=== PATIENT | female | born 1950 | race Caucasian/White ===

== ENCOUNTER 2019-05-06 | Emergency (ER) | payer MEDICARE ==
[2019-05-06] MEDS ORDERED: [UNRECOGNIZED DRUG - OTHER] PO (07:32)
[2019-05-06] MEDS ORDERED: EVISTA60 MG PO (07:33)
[2019-05-06] MEDS ORDERED: MEDDOSEPAK PO (07:48)
[2019-05-06] MEDS ORDERED: FLEXERIL5 M1 PO (07:48)
[2019-05-06] MEDS ORDERED: TRAMADOL HYDROC50 MG PO (07:48)
== END 2019-05-06 08:05 | disposition home or self-care (01) ==
DX: M54.31 Sciatica, right side (principal)

== ENCOUNTER 2021-11-14 08:48 | Observation (INO) | payer MEDICARE ==
[~2021-11-14] VITALS: Ht 160 cm; Wt 48.4 kg
[~2021-11-14 08:48] MED LIST: EVISTA60 MG PO; FLEXERIL5 M1 PO; MEDDOSEPAK PO; TRAMADOL HYDROC50 MG PO; [UNRECOGNIZED DRUG - OTHER] PO
[2021-11-14 09:33] LABS: HEMATOCRIT 35.5 % (37.0-47.0); HEMOGLOBIN 11.7 g/dl (12.0-16.0); IMMATURE GRANULOCYTES 0.1 % (0.0-5.0); MEAN CELL VOLUME 95.9 fL CALC (80.0-100.0); MEAN CORPUSCULAR HGB 31.6 pG CALC (26.0-32.0); NEUT# 5.36 thou/uL (2.00-7.15); RED BLOOD COUNT 3.7 mill/uL (4.20-5.60); RED CELL DISTRI WIDTH 13.2 % (11.5-15.5)
[2021-11-14 09:55] LABS: ALBUMIN 3.9 g/dL (3.2-5.0); ALKALINE PHOSPHATASE 75 u/l (38-126); ANION GAP 6 (6-22 (CALC)); BILIRUBIN, TOTAL 0.8 mg/dL (0.0-1.4); BUN 15 mg/dL (8-23); BUN/CREATININE RATIO 23 (12-20 (CALC)); CARBON DIOXIDE 30 mmol/l (22-30); CHLORIDE 103 mmol/l (95-108); CREATININE 0.7 mg/dL (0.5-1.0); GFR FOR AFR.AMER. > 60 ML/MIN (>=60 (CALC)); GFR OTHER RACES > 60 ML/MIN (>=60 (CALC)); SGOT/AST 26 u/l (9-36); SODIUM 136 mmol/l (137-146); TOTAL PROTEIN 6.3 g/dL (6.3-8.2)
[2021-11-14 10:07] LABS: MYOGLOBIN 65 ng/mL (0 - 62)
[2021-11-14 10:11] LABS: POTASSIUM 3.4 mmol/l (3.5-5.1)
[2021-11-14] MEDS ORDERED: AMITRIPTYLINE H10 MG PO (11:59)
[2021-11-14 12:53] VITALS: BP 126/33
[2021-11-14 15:01] VITALS: BP 98/43
[2021-11-14 19:16] VITALS: BP 100/42
[2021-11-15 00:05] VITALS: BP 118/42
[2021-11-15 04:03] VITALS: BP 110/61
[2021-11-15 05:17] LABS: HEMATOCRIT 32.6 % (37.0-47.0); MEAN CELL VOLUME 95.6 fL CALC (80.0-100.0); MEAN CORPUSCULAR HGB 32.3 pG CALC (26.0-32.0); MEAN CORPUSCULAR HGB CONC 33.7 g/dL CAL (32.0-36.0); RED BLOOD COUNT 3.41 mill/uL (4.20-5.60); RED CELL DISTRI WIDTH 13.3 % (11.5-15.5)
[2021-11-15 05:45] LABS: ANION GAP 7 (6-22 (CALC)); BUN 13 mg/dL (8-23); BUN/CREATININE RATIO 22 (12-20 (CALC)); CALCULATED LDLCHOLESTEROL 88 mg/dL (62-129 (CALC)); CARBON DIOXIDE 27 mmol/l (22-30); CHLORIDE 105 mmol/l (95-108); CHOLESTEROL HDL RATIO 2.2 (<4.4 (CALC)); CREATININE 0.6 mg/dL (0.5-1.0); GFR FOR AFR.AMER. > 60 ML/MIN (>=60 (CALC)); GFR OTHER RACES > 60 ML/MIN (>=60 (CALC)); HDL CHOLESTEROL 90 mg/dL (>=40); MAGNESIUM 1.9 mg/dL (1.6-2.3); POTASSIUM 3.9 mmol/l (3.5-5.1); SODIUM 135 mmol/l (137-146); TOTAL CHOLESTEROL 199 mg/dl (0-199); TOTAL TRIGLYCERIDES 103 mg/dl (30-149); VLDL CHOLESTROL 21 mg/dl (0-48 (CALC))
[2021-11-15 06:44] VITALS: BP 111/47
[2021-11-15 10:58] VITALS: BP 101/49
[2021-11-15] MEDS ORDERED: AZITHROMYCIN500 MG PO (11:33)
[2021-11-15] MEDS ORDERED: MEDDOSEPAK PO (11:33)
== END 2021-11-15 12:23 | disposition home or self-care (01) ==
LOC: ED 08:48 → ED-I 11:00 → ED 11:28 → MS2 11:29
PROVIDERS: Emergency Medicine; ADMIT Hospitalist; ATTEND Hospitalist
DX: R07.81 Pleurodynia (principal); J20.9 Acute bronchitis, unspecified; R91.1 Solitary pulmonary nodule; I34.1 Nonrheumatic mitral (valve) prolapse; M54.30 Sciatica, unspecified side; Z20.822 Contact with and (suspected) exposure to COVID-19
CPT/HCPCS: J1650; Q9967

== ENCOUNTER 2023-12-31 11:08 | Observation (INO) | payer MEDICARE ==
[~2023-12-31 11:08] MED LIST changes: +AMITRIPTYLINE H10 MG PO; +AMOXICILLIN500 MG OR; +AZITHROMYCIN500 MG PO; +CIPRO500 MG PO; +CIPROFLOXACN500 MG PO; +CYCLOBENZAPR10 MG PO; +FOSTEUM PO; +METRONIDAZOLE500 MG PO; +NO HOME MEDS; +NORCO1 TA1 PO; +PYRIDIUM200 MG PO; +STERAPRED DS10 MG PO; +TORADOL PO
--- NOTE | 2023-12-31 11:30 | NUR ---
PATIENT WAS A DIRECT ADMIT FROM DR. CARDENAS. PATIENT ARRIVED TO ROOM 272 AMBULATING INDEPENDENTLY WITH SPOUSE ACCOMPANYING. DENIES PAIN ON ADMISSION. ABLE TO ANSWER QUESTIONS APPROPRIATELY. RESPIRATIONS EVEN AND UNLABORED ON ROOM AIR. SKIN INTACT. NO CONCERNS VOICED. ORIENTED TO ROOM AND CALL LIGHT. SAFETY MEASURES IN PLACE.
[2023-12-31 11:39] VITALS: BP 128/66
[2023-12-31 11:53] LABS: BASO% 0.6 % (0-3); EOS% 3.5 % (0-8); HEMATOCRIT 37.7 % (37.0-47.0); HEMOGLOBIN 12.8 g/dl (12.0-16.0); IMMATURE GRANULOCYTES 0.2 % (0.0-5.0); LYMPH% 25.7 % (15-41); MEAN CELL VOLUME 92.9 fL CALC (80.0-100.0); MEAN CORPUSCULAR HGB 31.5 pG CALC (26.0-32.0); MONO% 8.2 % (2-13); NEUT# 3.18 thou/uL (2.00-7.15); NEUT% 61.8 % (42-76); RED BLOOD COUNT 4.06 mill/uL (4.20-5.60); RED CELL DISTRI WIDTH 12.6 % (11.5-15.5)
[2023-12-31 12:26] LABS: CREATININE 0.7 mg/dL (0.5-1.0); POTASSIUM 4.1 mmol/l (3.5-5.1)
[2023-12-31] MEDS ORDERED: LACTATED RINGER'S 1,000 ML IV PRN (12:45)
[2023-12-31] MEDS ORDERED: KETOROLAC TROMETHAMINE 15 MG/ML SDV IV SCH (13:00)
--- NOTE | 2023-12-31 14:48 | NUR ---
PATIENT AWAKE SITTING ON CHAIR IN ROOM WHILE READING A BOOK. IV FLUIDS IN PLACE. PATIENT PREFERS TO AMBULATE OFTEN IN ROOM STATING "I DON'T SIT STILL FOR LONG". REFUSED SCHEDULED TORADOL. HAD BOWEL MOVEMENT AND URINATING WITHOUT DIFFICULTY. CALL LIGHT WITHIN REACH.
[2023-12-31 18:41] VITALS: BP 139/51
[2023-12-31] MEDS ORDERED: Peg 3350-POTASSIUM CHLORIDE-So 4,000 ML BTL PO SCH (19:00)
--- NOTE | 2023-12-31 19:57 | NUR ---
RECIEVED REPORT FROM ROBERTA SAMPSON. PT NOTED SITTING UP IN BED FOWLERS, READING A BOOK. PT IS A/OX3, RM AIR, DENIES ANY P/N/V AT THIS TIME. NURSING ASSESMENT COMPLETED AND IV SITE NOTED TO RAC. PT C/O OF PRESSURE AT IV SITE, SITE DOES PRESENT WITH SOME REDNESS AND SWELLING. REMOVED WITH CATHETER INTACT. NEW IV WILL BE ATTEMPTED. BOWEL PREP ADMINSITERED PER EMAR AND EDUCATED PT ON IMPORTANCE OF COMPLETING BOWEL PREP AND SIDE EFFECTS. EDUCATED PT ON PLAN OF CARE, MED SCHEDULE AND NPO ORDER AFTER MIDNIGHT. PT INDICATED UNDERSTANDING. PT WAS ENCOURAGED TO USE SCD'S AT BEDSIDE, PT REFUSED AT THIS TIME DUE TO INCREASE IN BM AFTER STARTING BOWEL PREP. CALL LIGHT WITHIN REACH AND SAFETY PRECAUTIONS IN PLACE.
--- NOTE | 2023-12-31 20:44 | NUR ---
PT ADMISSION NOT COMPLETED BY DAYSHIFT NURSE.
--- NOTE | 2023-12-31 21:20 | NUR ---
PT RESTING IN BED IN A MID FOWLERS POSITION WATCHING TELEVISION. PT DOES NOT SHOW ANY S&S OF DISTRESS AT THIS TIME. TELE REMAINS IN PLACE. PT IS ON ROOM AIR. ADMISSION ASSESSMENT COMPLETED AT THIS TIME. SCD IN PLACE. WILL ATTEMPT NEW IV ACCESS. INFUSION PAUSED AT THIS TIME. PT IS A&O X3, AND ABLE TO MAKE NEEDS KNOWN. PT COMPLAINING OF SLIGHT NAUSEA WHEN DRINKING THE BOWEL PREP. NO VOMITTING AT THIS TIME. NO FURTHER COMPLAINTS VOICED FROM THE PT. CALL LIGHT IN REACH, AND SAFETY PRECAUTIONS IN PLACE.
[2023-12-31] MEDS ORDERED: ONDANSETRON HCl 4 MG/2 ML SDV IV PRN (22:45)
--- NOTE | 2023-12-31 22:55 | NUR ---
PT MEDICATED PER EMAR FOR NAUSEA. PT DOES NOT VOICE ANY FURTHER COMPLAINTS AT THIS TIME. BOWEL PREP ON BEDSIDE TABLE. PT ENCOURAGED TO DRINK MUCH OF THE BOWEL PREP POSSIBLE. PT EDUCATED ON THE IMPORTANCE OF BOWEL PREP FOR HER PROCEDURE. PT VERBALIZES UNDERSTANDING. CALL LIGHT IN REACH, AND SAFETY PRECAUTIONS IN PLACE.
--- NOTE | 2023-12-31 23:45 | NUR ---
PT HAS BEEN EDUCATED ON THE IMPORTANCE OF COMPLETING THE BOWEL PREP, ENCOURAGED MUTIPLE TIMES TO DRINK. PT STATED "IM FAMILIAR WITH THIS, I NEVER FINISH IT. I JUST CAN'T GET IT DOWN." PT ASLO STILL C/O NAUSEA. PT HAS ONLY DRANK LESS THEN A QAURTER OF BOWEL PREP AT THIS TIME. INFORMED PT OF NPO STATUS AT MIDNIGHT AND ENCOURAGED TO TRY DRINKING MUCH POSSIBLE BEFORE THEN. PT DENIES ANY PAIN AT THIS TIME. SITTING UP ON SIDE OF BED. CALL LIGHT WITHIN REACH AND SAFETY PRECAUTIONS IN PLACE.
--- NOTE | 2024-01-01 00:03 | NUR ---
BOWEL PREP REMOVED FROM PT ROOM, PT WAS ABLE TO DRINK ABOUT HALF OF CONTENTS IN BOTTLE. INFORMED PT OF NPO STATUS OF NOW. PT IS SITTING UP ON SIDE OF BED, STATES "WAITING FOR IT TO HIT ME TO USE THE BATHROOM" PT DENIES ANY PAIN AT THIS TIME, REFUSED SCHEDULED PAIN MEDICAITON PER EMAR. NO S/S DISTRESS. CALL LIGHT WITHIN REACH AND SAFETY PRECAUTIONS IN PLACE.
[2024-01-01 03:47] VITALS: BP 143/62
--- NOTE | 2024-01-01 04:00 | NUR ---
PT RESTING IN BED. PT DOES NOT OFFER ANY COMPLAINTS AT THIS TIME. PT REMAINS ON ROOM AIR. PT DENIES ANY PAIN. PT DENIES ANY NAUSEA. INFUSION GOING PER ORDERS. RELAXATION TECHNIQUES TAUGHT AND ENCOURAGED. NO S&S OF DISTRESS NOTED. CALL LIGHT IN REACH, AND SAFETY PRECAUTIONS IN PLACE.
--- NOTE | 2024-01-01 07:04 | NUR ---
PATIENT LAYING IN BED. SPOUSE IS AT BEDSIDE. PATIENT A&OX4 AND ABLE TO MAKE NEEDS KNOWN. PATIEN ABDOMEN SOFT AND NONTENDER, RESPIRATIONS EVEN AND UNLABORED, PEDAL PULSES PRESENT. PATIENT DENIES ANY NEEDS AT THIS TIME. WILL CONTINUE TO MONITOR.
--- NOTE | 2024-01-01 08:38 | NUR ---
PATIENT OFF UNIT TO OR.
[2024-01-01] MEDS ORDERED: FAMOTIDINE 10MG/ML 2ML SDV IV ONE (08:55)
[2024-01-01] MEDS ORDERED: STERILE WATER FOR IRRIGATION 1,000 ML BTL IR ONE (09:13)
[2024-01-01] MEDS ORDERED: AMOX/K CLAV875 M1 PO (09:59)
--- NOTE | 2024-01-01 10:27 | NUR ---
PATIENT BACK ON UNIT FROM OR.
[2024-01-01 10:35] VITALS: BP 139/56
[2024-01-01 10:50] VITALS: BP 156/77
[2024-01-01 11:05] VITALS: BP 157/70
[2024-01-01 11:20] VITALS: BP 140/61
--- NOTE | 2024-01-01 11:43 | NUR ---
PATIENT LAYING IN BED. FAMILY AT BEDSIDE. PATIENT DENIES ANY NEEDS AT THIS TIME WILL CONTINUE TO MONITOR.
--- NOTE | 2024-01-01 15:44 | NUR ---
Discharge instructions given. Patient verbalizes understanding of same. Discharged in stable condition via Wheelchair to Home with staff. All belongings sent with pt. PATIENT IV REMOVED AND TOLERATED WELL.
[2024-01-03] MEDS ORDERED: PROPOFOL 200 MG/20 ML VIAL IV ONE (12:19)
[2024-01-03] MEDS ORDERED: GLYCOPYRROLATE 0.2 MG/ML IV ONE (12:19)
[2024-01-03] MEDS ORDERED: LIDOCAINE HCL 2% 2ML SDV IV ONE (12:19)
[2024-01-03] MEDS ORDERED: METOPROLOL TARTRATE 5 MG/5 ML VIAL IV ONE (12:19)
== END 2024-01-01 15:42 | disposition home or self-care (01) ==
LOC: MS2 11:08
PROVIDERS: ADMIT Internal Medicine; ATTEND Surgery
PROC: 0DBN8ZX Excision of Sigmoid Colon, Via Natural or Artificial Opening Endoscopic, Diagnostic (ICD-10-PCS; principal; 2024-01-01)
PROC: 3E0H8GC Introduction of Other Therapeutic Substance into Lower GI, Via Natural or Artificial Opening Endoscopic (ICD-10-PCS; 2024-01-01)
DX: K57.32 Diverticulitis of large intestine without perforation or abscess without bleeding (principal); K50.10 Crohn's disease of large intestine without complications; K64.8 Other hemorrhoids; I34.1 Nonrheumatic mitral (valve) prolapse; Z87.891 Personal history of nicotine dependence; Z80.0 Family history of malignant neoplasm of digestive organs; Z20.822 Contact with and (suspected) exposure to COVID-19
CPT/HCPCS: G0378; G0379